=== PATIENT | male | born 1995 | race Two or more races ===

== ENCOUNTER 2019-03-10 04:38 | Emergency (ER) | payer OTHER ==
--- NOTE | 2019-03-10 04:47 | ED ---
Substance Abuse/Use - HPI Summary HPI Summary: This pt is a 23 Y/O M brought in by EMS to [facility] for alcohol intoxication. The pt kept a tally on his arm and had at least 14 drinks before throwing up in his bed and having his RA call 911. THIS PT IS A LEVEL 5 CAVEAT DUE TO HIS LEVEL OF INTOXICATION. - History Of Current Complaint Chief Complaint: EDSubstanceAbuse Stated Complaint: ETOH PER EMS Hx Obtained From: Patient Aggravating Factor(s): Nothing - Allergies/Home Medications Allergies/Adverse Reactions: Allergies Allergy/AdvReac Type Severity Reaction Status Date / Time No Known Allergies Allergy Verified 03/10/19 04:47 Home Medications: Home Medications NK [No Home Medications Reported] 03/10/19 [History Confirmed 03/10/19] PMH/Surg Hx/FS Hx/Imm Hx Previously Healthy: No - Additional Comments History Additional Comments: A FULL PMHX IS UNOBTAINABLE DUE TO HIS LEVEL OF ALCOHOL INTOXICATION. Review of Systems - ROS Summary Review of Systems Summary: A FULL ROS IS UNOBTAINABLE DUE TO HIS LEVEL OF ALCOHOL INTOXICATION. All Other Systems Reviewed And Are Negative: No Physical Exam - Summary Physical Exam Summary: A FULL PE IS UNOBTAINABLE DUE TO HIS LEVEL OF ALCOHOL INTOXICATION Appearance: Well-appearing, Well-nourished, lying in bed comfortably Skin: Warm, dry, no obvious rash Eyes: sclera anicteric, no conjunctival pallor ENT: mucous membranes moist, pharynx appears normal Neck: Supple, nontender Respiratory: Clear to auscultation, no signs of respiratory distress Cardiovascular: Normal S1, S2. No murmurs. Normal distal pulses in tibial and radial bilaterally. Abdomen: Soft, nontender, normal active bowel sounds present Musculoskeletal: Normal, Strength/ROM Intact Neurological: A&Ox3, awake and alert, mentation is normal, speech is fluent and appropriate Psychiatric: affect is normal, does not appear anxious or depressed Triage Information Reviewed: Yes Vital Signs Reviewed: Yes Procedures - Sedation Patient Received Moderate/Deep Sedation with Procedure: No Course/Dx - Course Course Of Treatment: his pt is a 23 Y/O M brought in by EMS to [facility] for alcohol intoxication. The pt kept a tally on his arm and had at least 14 drinks before throwing up in his bed and having his RA call 911. THIS PT IS A LEVEL 5 CAVEAT DUE TO HIS LEVEL OF INTOXICATION. His PE found that he is answering the questions clearly. He is intoxicated. This pt will be signed out to Dr. Dangelo pending sobriety. He was diagnosed with Alcohol intoxication during his ED course. - Diagnoses Provider Diagnoses: Alcohol intoxication Discharge ED - Sign-Out/Discharge Documenting (check all that apply): Sign-Out Patient Signing out patient TO: Rui Dangelo - Discharge Plan Condition: Improved Disposition: HOME Patient Education Materials: Alcohol Intoxication (ED) Referrals: [facility] [Outside] - If Needed Additional Instructions: Follow up with your primary care provider in 2-3 days. Return to the emergency department for any new or worsening symptoms. - Billing Disposition and Condition Condition: IMPROVED Disposition: Home - Attestation Statements Document Initiated by Hailey: Yes Documenting Scribe: Parker Santos Provider For Whom Hailey is Documenting (Include Credential): Eb Garcia MD Scribe Attestation: Parker Pope scribed for Eb Garcia MD on 03/11/19 at 0114. Scribe Documentation Reviewed: Yes Provider Attestation: The documentation as recorded by the Parker jorge accurately reflects the service I personally performed and the decisions made by , Eb Garcia MD Status of Scribe Document: Viewed
--- NOTE | 2019-03-10 07:25 | ED ---
Progress - Progress Note Progress Note: The patient is a sign-out from Dr. Eb Garcia MD, to Dr. Rui Dangelo MD, at change of shift at 0700 on 03/10/19, pending sobriety and likely discharge. 1215 - patient awake and able to ambulate; he is clear for discharge Re-Evaluation - Re-Evaluation First Eval Re-Evaluation Time: 12:15 Change: Improved Comment: Patient awake and able to ambulate. Course/Dx - Course Course Of Treatment: The patient is a sign-out from Dr. Eb Garcia MD, to Dr. Rui Dangelo MD, at change of shift at 0700 on 03/10/19, pending sobriety and likely discharge. Since the patient is awake and able to ambulate, he is clear for discharge home. Patient understands and agrees with this plan. - Diagnoses Provider Diagnoses: Alcohol intoxication Discharge ED - Sign-Out/Discharge Documenting (check all that apply): Patient Departure - Patient will be discharged home., Receiving Sign-Out Receiving patient FROM: Eb Garcia - Patient is a sign-out from Dr. Eb Garcia MD, at change of shift at 0700 on 03/10/19, pending sobriety and likely discharge. - Discharge Plan Condition: Improved Disposition: HOME Patient Education Materials: Alcohol Intoxication (ED) Referrals: [facility] [Outside] - If Needed Additional Instructions: Follow up with your primary care provider in 2-3 days. Return to the emergency department for any new or worsening symptoms. - Billing Disposition and Condition Condition: IMPROVED Disposition: Home - Attestation Statements Document Initiated by Hailey: Yes Documenting Scribe: Jennifer Bragg Provider For Whom Hailey is Documenting (Include Credential): Dr. Rui Dangelo MD Scribe Attestation: Jennifer Pope scribed for Dr. Rui Dangelo MD on 03/11/19 at 0914. Scribe Documentation Reviewed: Yes Provider Attestation: The documentation as recorded by the Jennifer jorge accurately reflects the service I personally performed and the decisions made by me, Dr. Rui Dangelo MD Status of Scribe Document: Viewed Procedures - Sedation Patient Received Moderate/Deep Sedation with Procedure: No
[2019-03-10 12:17] VITALS: BP 117/60
== END 2019-03-10 12:20 | disposition home or self-care (01) ==
LOC: ED 04:38
DX: F10.929 Alcohol use, unspecified with intoxication, unspecified (principal)
CPT/HCPCS: 99283